=== PATIENT | male | born 1980 | race African-American/Black ===

== ENCOUNTER 2016-05-11 21:56 | Inpatient (IN) | payer MEDICAID, OTHER ==
[~2016-05-11] VITALS: Ht 177.8 cm; Wt 68.9 kg
[2016-05-12 03:01] LABS: BASOPHILS # (AUTO) 0.04 K/uL (0.00-0.20); BASOPHILS % (AUTO) 0.6 % (0.0-2.0); EOSINOPHILS # (AUTO) 0.13 K/uL (0.00-0.70); EOSINOPHILS % (AUTO) 1.85 % (1.0-6.0); HEMATOCRIT 38.6 % (41-53); HEMOGLOBIN 12.8 g/dL (13.5-17.5); LYMPHOCYTES % (AUTO) 14.6 % (22.0-44.0); MEAN CORPUSCULAR HEMOGLOBIN 30.3 pg (26.0-34.0); MEAN CORPUSCULAR VOLUME 92 fL (80-100); MONOCYTES # (AUTO) 0.6 K/uL (0.1-1.0); MONOCYTES % (AUTO) 8.7 % (2.0-9.0); NEUTROPHILS # (AUTO) 5.3 K/uL (1.8-7.7); NEUTROPHILS % (AUTO) 74.3 % (40.0-70.0); PLATELET COUNT (AUTO) 283 K/uL (150-450); RED BLOOD CELL COUNT(AUTO) 4.21 MIL/uL (4.50-5.90); RED CELL DISTRIBUTION WIDTH 14.2 % (11.5-14.5); WHITE BLOOD COUNT (AUTO) 7.1 K/uL (4.5-11.0)
[2016-05-12 03:10] LABS: ANION GAP 7 mmol/L (8-16); CARBON DIOXIDE 29 mmol/L (22-29); CHLORIDE 99 mmol/L (98-107); CREATININE 1.14 mg/dL (0.60-1.30); GLOMERULAR FILTR. RATE CALC > 60 mL/min (>60); POTASSIUM 3.4 mmol/L (3.5-5.1); SODIUM SERUM 135 mmol/L (136-145); UREA NITROGEN, BLOOD 15 mg/dL (7-18)
[2016-05-12] MEDS ORDERED: HALOPERIDOL 5 MG TABLET PO ONE (03:15)
[2016-05-12] MEDS ORDERED: LORazepam 2 MG TABLET PO ONE (03:15)
[2016-05-12] MEDS ORDERED: IBUPROFEN 600 MG TABLET PO ONE (03:15)
[2016-05-12 03:16] LABS: ALANINE AMINOTRANSFERASE 30 U/L (12-78); ALBUMIN 4.1 g/dL (3.4-5.0); ASPARTATE AMINOTRANSFERASE 40 U/L (15-37); BILIRUBIN,TOTAL 1.4 mg/dL (0.1-1.0)
[2016-05-12] MEDS ORDERED: POTASSIUM CHLORIDE 20 MEQ ER TABLET PO ONE ×2 (04:15→08:45)
[2016-05-12] MEDS ORDERED: LORazepam 2 MG TABLET PO PRN (05:45)
[2016-05-12] MEDS ORDERED: ZOLPIDEM TARTRATE 10 MG TABLET PO PRN (05:45)
[2016-05-12] MEDS ORDERED: HALOPERIDOL 5 MG TABLET PO PRN (06:30)
[2016-05-12 06:34] LABS: APPEARANCE,URINE TURBID (CLEAR); GLUCOSE, URINE (UA) NEGATIVE (NEGATIVE); KETONES,URINE 15 mg/dL (NEGATIVE); LEUKOCYTE ESTERASE ,URINE NEGATIVE (NEGATIVE); OCCULT BLOOD,URINE NEGATIVE (NEGATIVE); PROTEIN,URINE TRACE (NEGATIVE)
[2016-05-12 06:39] LABS: ADD UA MICROSCOPIC YES
[2016-05-12 06:46] LABS: RBC,URINE None Seen /HPF (0-2); WBC,URINE None Seen /HPF (0-5)
[2016-05-12 06:47] LABS: SQUAMOUS EPITHELIAL CELL,UR Few /LPF (None Seen)
[2016-05-12 06:54] VITALS: BP 133/91
[2016-05-12] MEDS ORDERED: INFLUENZA VIRUS VACCINE QVS 2016-17 (3YR+)/PF 60 MCG/0.5 ML SYRINGE IM ONE (07:45)
[2016-05-12 08:45] VITALS: BP 97/57
[2016-05-12] MEDS ORDERED: MAG HYDROX/AL HYDROX/SIMETH ES 30 ML SUSPENSION UDCUP PO PRN (08:45)
[2016-05-12] MEDS ORDERED: IBUPROFEN 600 MG TABLET PO PRN (08:45)
[2016-05-12] MEDS ORDERED: LOPERAMIDE HCL 2 MG CAPSULE PO PRN (08:45)
[2016-05-12] MEDS ORDERED: CloNIDine HCL 0.1 MG TABLET PO PRN (08:45)
[2016-05-12] MEDS ORDERED: ALBUTEROL SULFATE HFA 90 MCG/PUFF 8 GM INHALER IH PRN (08:45)
[2016-05-12] MEDS ORDERED: PETROLATUM,WHITE 71 GM JELLY TP PRN (08:45)
[2016-05-12] MEDS ORDERED: MAGNESIUM HYDROXIDE SUSPENSION 30 ML UDCUP PO PRN (08:45)
[2016-05-12] MEDS ORDERED: BACITRACIN 28.4 GM OINTMENT TP PRN (08:45)
[2016-05-12] MEDS ORDERED: ACETAMINOPHEN 325 MG TABLET PO PRN (08:45)
[2016-05-12] MEDS ORDERED: ONDANSETRON HCL 4 MG TABLET PO PRN (08:45)
[2016-05-12] MEDS ORDERED: BENZOCAINE/MENTHOL LOZENGE [8 LOZENGES/PACKET] MM PRN (09:00)
[2016-05-12] MEDS: CIPROFLOXACIN HCL 250 MG TABLET PO SCH ×2 (11:18→16:11)
[2016-05-12 16:44] VITALS: BP 101/57
[2016-05-12] MEDS ORDERED: QUEtiapine FUMARATE 200 MG TABLET PO SCH (21:00)
[2016-05-12] MEDS ORDERED: MIRTAZAPINE 15 MG TABLET PO SCH (21:00)
[2016-05-13 07:03] LABS: POTASSIUM 4.1 mmol/L (3.5-5.1)
[2016-05-13 08:42] VITALS: BP 114/58
[2016-05-13] MEDS: CIPROFLOXACIN HCL 250 MG TABLET PO SCH ×2 (09:44→16:06)
[2016-05-13] MEDS ORDERED: MIRT15 PO (14:33)
[2016-05-13] MEDS ORDERED: CIP250 PO (14:33)
[2016-05-13] MEDS ORDERED: QUET200T PO (14:34)
== END 2016-05-13 16:00 | disposition home or self-care (01) | DRG 750 ==
LOC: EMS 21:58 → 3EI 05-12 05:52
DX: F20.0 Paranoid schizophrenia (principal); R45.851 Suicidal ideations; E87.1 Hypo-osmolality and hyponatremia; E87.6 Hypokalemia; N39.0 Urinary tract infection, site not specified; G47.00 Insomnia, unspecified; F15.10 Other stimulant abuse, uncomplicated; F12.10 Cannabis abuse, uncomplicated; F17.200 Nicotine dependence, unspecified, uncomplicated; Z71.6 Tobacco abuse counseling; Z71.51 Drug abuse counseling and surveillance of drug abuser; Z91.5 Personal history of self-harm; Z87.81 Personal history of (healed) traumatic fracture
CPT/HCPCS: 84132; 84295; 87081; 87086; 99285; 99406; G0480; J3535

== ENCOUNTER 2016-05-30 03:23 | Inpatient (IN) | payer MEDICAID ==
[~2016-05-30] VITALS: Ht 172.7 cm; Wt 70.9 kg
[~2016-05-30 03:23] MED LIST: CIP250 PO; MIRT15 PO; QUET200T PO
[2016-05-30 04:10] LABS: BASOPHILS # (AUTO) 0.02 K/uL (0.00-0.20); BASOPHILS % (AUTO) 0.3 % (0.0-2.0); EOSINOPHILS # (AUTO) 0.04 K/uL (0.00-0.70); EOSINOPHILS % (AUTO) 0.62 % (1.0-6.0); HEMATOCRIT 39.8 % (41-53); HEMOGLOBIN 13.5 g/dL (13.5-17.5); LYMPHOCYTES # (AUTO) 0.8 K/uL (1.0-4.8); LYMPHOCYTES % (AUTO) 13.5 % (22.0-44.0); MEAN CORPUSCULAR HEMOGLOBIN 30.6 pg (26.0-34.0); MEAN CORPUSCULAR HGB CONC 33.8 G/dL (31.0-37.0); MEAN CORPUSCULAR VOLUME 90 fL (80-100); MONOCYTES # (AUTO) 0.4 K/uL (0.1-1.0); MONOCYTES % (AUTO) 6.9 % (2.0-9.0); NEUTROPHILS # (AUTO) 4.9 K/uL (1.8-7.7); NEUTROPHILS % (AUTO) 78.7 % (40.0-70.0); PLATELET COUNT (AUTO) 268 K/uL (150-450); RED CELL DISTRIBUTION WIDTH 13.6 % (11.5-14.5); WHITE BLOOD COUNT (AUTO) 6.2 K/uL (4.5-11.0)
[2016-05-30 04:16] LABS: ANION GAP 20 mmol/L (8-16); CALCIUM, TOTAL 9.2 mg/dL (8.8-10.5); CARBON DIOXIDE 20 mmol/L (22-29); CHLORIDE 100 mmol/L (98-107); CREATININE 1.48 mg/dL (0.60-1.30); GLOMERULAR FILTR. RATE CALC > 60 mL/min (>60); POTASSIUM 3.1 mmol/L (3.5-5.1); SODIUM SERUM 140 mmol/L (136-145); UREA NITROGEN, BLOOD 10 mg/dL (7-18)
[2016-05-30 04:23] LABS: ALANINE AMINOTRANSFERASE 28 U/L (12-78); ALBUMIN 4.4 g/dL (3.4-5.0); ASPARTATE AMINOTRANSFERASE 31 U/L (15-37); BILIRUBIN,TOTAL 1.8 mg/dL (0.1-1.0); TOTAL PROTEIN, SERUM 8.5 g/dL (6.4-8.2)
[2016-05-30] MEDS ORDERED: HALOPERIDOL LACTATE 5 MG/ML VIAL IM ONE (06:00)
[2016-05-30] MEDS ORDERED: LORazepam 2 MG TABLET PO PRN (06:00)
[2016-05-30] MEDS ORDERED: LORazepam 2 MG/ML VIAL IM ONE (06:00)
[2016-05-30] MEDS ORDERED: DiphenhydrAMINE HCL 50 MG/ML VIAL IM ONE (06:00)
[2016-05-30] MEDS ORDERED: HALOPERIDOL 5 MG TABLET PO PRN (06:00)
[2016-05-30] MEDS ORDERED: ZOLPIDEM TARTRATE 10 MG TABLET PO PRN (06:00)
[2016-05-30 09:00] LABS: ADD UA MICROSCOPIC YES; GLUCOSE, URINE (UA) NEGATIVE (NEGATIVE); KETONES,URINE TRACE mg/dL (NEGATIVE); LEUKOCYTE ESTERASE ,URINE NEGATIVE (NEGATIVE); OCCULT BLOOD,URINE SMALL (NEGATIVE); PROTEIN,URINE SEE CONFIRM (NEGATIVE)
[2016-05-30 09:01] LABS: APPEARANCE,URINE HAZY (CLEAR)
[2016-05-30 09:02] LABS: RBC,URINE 0-2 /HPF (0-2); SULFOSALICYLIC ACID,URINE 1+ (Negative); WBC,URINE 0-2 /HPF (0-5)
[2016-05-30 09:03] LABS: SQUAMOUS EPITHELIAL CELL,UR Rare /LPF (None Seen)
[2016-05-30 09:04] LABS: COARSE GRANULAR CASTS,URINE 0-2 /LPF (None Seen); URINALYSIS COMMENT Moderate Trich. seen
[2016-05-30] MEDS ORDERED: POTASSIUM CHLORIDE 10% 40 MEQ/30 ML LIQUID UDCUP PO ONE (22:00)
[2016-05-30] MEDS ORDERED: INFLUENZA VIRUS VACCINE QVS 2016-17 (3YR+)/PF 60 MCG/0.5 ML SYRINGE IM ONE (22:15)
[2016-05-30] MEDS ORDERED: PNEUMOCOCCAL VACCINE POLYVALENT 0.5 ML VIAL [PPSV23] IM ONE (22:15)
[2016-05-30 22:33] VITALS: BP 130/74
[2016-05-31] MEDS ORDERED: BACITRACIN 28.4 GM OINTMENT TP PRN (09:30)
[2016-05-31] MEDS ORDERED: ACETAMINOPHEN 325 MG TABLET PO PRN (09:30)
[2016-05-31] MEDS ORDERED: LOPERAMIDE HCL 2 MG CAPSULE PO PRN (09:30)
[2016-05-31] MEDS ORDERED: PETROLATUM,WHITE 71 GM JELLY TP PRN (09:30)
[2016-05-31] MEDS ORDERED: MAGNESIUM HYDROXIDE SUSPENSION 30 ML UDCUP PO PRN (09:30)
[2016-05-31] MEDS ORDERED: CloNIDine HCL 0.1 MG TABLET PO PRN (09:30)
[2016-05-31] MEDS ORDERED: MAG HYDROX/AL HYDROX/SIMETH ES 30 ML SUSPENSION UDCUP PO PRN (09:30)
[2016-05-31] MEDS ORDERED: BENZOCAINE/MENTHOL LOZENGE [8 LOZENGES/PACKET] MM PRN (09:30)
[2016-05-31] MEDS ORDERED: ONDANSETRON HCL 4 MG TABLET PO PRN (09:30)
[2016-05-31] MEDS ORDERED: IBUPROFEN 600 MG TABLET PO PRN (09:30)
[2016-05-31] MEDS ORDERED: ALBUTEROL SULFATE HFA 90 MCG/PUFF 8 GM INHALER IH PRN (09:30)
[2016-05-31] MEDS: NICOTINE 7 MG/24 HOUR PATCH TD SCH (09:59)
[2016-05-31 11:02] VITALS: BP 114/62
[2016-05-31 16:30] VITALS: BP 121/65
[2016-05-31] MEDS ORDERED: MIRTAZAPINE 15 MG TABLET PO SCH (21:00)
[2016-05-31] MEDS ORDERED: QUEtiapine FUMARATE 200 MG TABLET PO SCH (21:00)
[2016-06-01 07:33] LABS: HEMOGLOBIN A1C 5.5 % (4.5-6.2)
[2016-06-01 07:55] LABS: ANION GAP 10 mmol/L (8-16); CALCIUM, TOTAL 8.4 mg/dL (8.8-10.5); CARBON DIOXIDE 26 mmol/L (22-29); CHLORIDE 108 mmol/L (98-107); CHOL/HDL RATIO 2.4 (4.2-7.3); CREATININE 1.09 mg/dL (0.60-1.30); GLOMERULAR FILTR. RATE CALC > 60 mL/min (>60); POTASSIUM 3.9 mmol/L (3.5-5.1); SODIUM SERUM 144 mmol/L (136-145); UREA NITROGEN, BLOOD 13 mg/dL (7-18)
[2016-06-01] MEDS: NICOTINE 7 MG/24 HOUR PATCH TD SCH (09:47)
[2016-06-01 10:22] VITALS: BP 117/69
== END 2016-06-01 14:54 | disposition home or self-care (01) | DRG 885 ==
LOC: EMS 03:24 → 3EI 21:38
DX: F20.0 Paranoid schizophrenia (principal); R45.851 Suicidal ideations; F43.10 Post-traumatic stress disorder, unspecified; F32.9 Major depressive disorder, single episode, unspecified; E87.6 Hypokalemia; R73.9 Hyperglycemia, unspecified; F15.10 Other stimulant abuse, uncomplicated; F12.90 Cannabis use, unspecified, uncomplicated; F17.210 Nicotine dependence, cigarettes, uncomplicated; Z72.89 Other problems related to lifestyle; Z71.41 Alcohol abuse counseling and surveillance of alcoholic; Z71.6 Tobacco abuse counseling; Z79.899 Other long term (current) drug therapy; Z71.51 Drug abuse counseling and surveillance of drug abuser; Z98.890 Other specified postprocedural states; Z87.81 Personal history of (healed) traumatic fracture
CPT/HCPCS: 82306; 83036; 84443; 87081; 96372; 99285; G0480; J1200; J1630; J2060; Q0162

== ENCOUNTER 2016-07-02 22:06 | Inpatient (IN) | payer MEDICAID, OTHER ==
[~2016-07-02] VITALS: Ht 170.2 cm; Wt 65.1 kg
[~2016-07-02 22:06] MED LIST changes: -CIP250 PO
[2016-07-02 22:39] LABS: BASOPHILS # (AUTO) 0.09 K/uL (0.00-0.20); BASOPHILS % (AUTO) 1.9 % (0.0-2.0); EOSINOPHILS # (AUTO) 0.13 K/uL (0.00-0.70); EOSINOPHILS % (AUTO) 2.67 % (1.0-6.0); HEMATOCRIT 42.4 % (41-53); HEMOGLOBIN 14.4 g/dL (13.5-17.5); LYMPHOCYTES # (AUTO) 1.5 K/uL (1.0-4.8); MEAN CORPUSCULAR HGB CONC 33.9 G/dL (31.0-37.0); MEAN CORPUSCULAR VOLUME 89 fL (80-100); MONOCYTES # (AUTO) 0.3 K/uL (0.1-1.0); MONOCYTES % (AUTO) 6.7 % (2.0-9.0); NEUTROPHILS # (AUTO) 2.9 K/uL (1.8-7.7); NEUTROPHILS % (AUTO) 58.8 % (40.0-70.0); PLATELET COUNT (AUTO) 216 K/uL (150-450); RED BLOOD CELL COUNT(AUTO) 4.79 MIL/uL (4.50-5.90); RED CELL DISTRIBUTION WIDTH 14.5 % (11.5-14.5)
[2016-07-02 22:47] LABS: ANION GAP 12 mmol/L (8-16); CALCIUM, TOTAL 9.6 mg/dL (8.8-10.5); CARBON DIOXIDE 26 mmol/L (22-29); CHLORIDE 102 mmol/L (98-107); GLOMERULAR FILTR. RATE CALC > 60 mL/min (>60); POTASSIUM 3.5 mmol/L (3.5-5.1); SODIUM SERUM 140 mmol/L (136-145); UREA NITROGEN, BLOOD 12 mg/dL (7-18)
[2016-07-02 22:52] LABS: ALANINE AMINOTRANSFERASE 18 U/L (12-78); ALBUMIN 4.3 g/dL (3.4-5.0); ASPARTATE AMINOTRANSFERASE 19 U/L (15-37); BILIRUBIN,TOTAL 1.9 mg/dL (0.1-1.0); TOTAL PROTEIN, SERUM 8.3 g/dL (6.4-8.2)
[2016-07-03] MEDS ORDERED: LORazepam 2 MG TABLET PO PRN
[2016-07-03] MEDS ORDERED: OLANZapine 5 MG RAPDIS TABLET PO PRN
[2016-07-03] MEDS ORDERED: ZOLPIDEM TARTRATE 10 MG TABLET PO PRN
[2016-07-03 06:08] VITALS: BP 113/60
[2016-07-03 07:31] VITALS: BP 113/60
[2016-07-03 08:14] VITALS: BP 100/66
[2016-07-03] MEDS ORDERED: BENZOCAINE/MENTHOL LOZENGE MM PRN (08:15)
[2016-07-03] MEDS ORDERED: ALBUTEROL SULFATE HFA 90 MCG/PUFF 8 GM INHALER IH PRN (08:15)
[2016-07-03] MEDS ORDERED: IBUPROFEN 600 MG TABLET PO PRN (08:15)
[2016-07-03] MEDS ORDERED: ONDANSETRON HCL 4 MG TABLET PO PRN (08:15)
[2016-07-03] MEDS ORDERED: MAGNESIUM HYDROXIDE SUSPENSION 30 ML UDCUP PO PRN (08:15)
[2016-07-03] MEDS ORDERED: MAG HYDROX/AL HYDROX/SIMETH ES 30 ML SUSPENSION UDCUP PO PRN (08:15)
[2016-07-03] MEDS ORDERED: CloNIDine HCL 0.1 MG TABLET PO PRN (08:15)
[2016-07-03] MEDS ORDERED: PETROLATUM,WHITE 71 GM JELLY TP PRN (08:15)
[2016-07-03] MEDS ORDERED: ACETAMINOPHEN 325 MG TABLET PO PRN (08:15)
[2016-07-03] MEDS ORDERED: LOPERAMIDE HCL 2 MG CAPSULE PO PRN ×2 (08:15→11:00)
[2016-07-03] MEDS ORDERED: BACITRACIN 28.4 GM OINTMENT TP PRN (08:15)
[2016-07-03] MEDS ORDERED: MULTIVITAMINS WITH MINERALS, THERAPEUTIC TABLET PO SCH (09:00)
[2016-07-03] MEDS ORDERED: GuaiFENesin/D-METHORPHAN [SUGAR-FREE] 200-20MG/10 ML SYRUP UDCUP PO PRN (11:00)
[2016-07-03] MEDS ORDERED: QUEtiapine FUMARATE 100 MG TABLET PO PRN (11:00)
[2016-07-03] MEDS ORDERED: HydrOXYzine PAMOATE 50 MG CAPSULE PO PRN (11:00)
[2016-07-03] MEDS ORDERED: PALIPERIDONE 3 MG ER TABLET PO PRN (15:30)
[2016-07-03] MEDS ORDERED: PALIPERIDONE PALMITATE 234 MG/1.5 ML SYRINGE IM ONE (15:30)
[2016-07-03 16:48] VITALS: BP 107/57
[2016-07-03] MEDS: THIAMINE HCL 100 MG TABLET PO SCH (16:54)
[2016-07-03] MEDS: GABAPENTIN 100 MG CAPSULE PO SCH (16:54)
[2016-07-03] MEDS ORDERED: QUEtiapine FUMARATE 200 MG TABLET PO SCH (21:00)
[2016-07-03] MEDS ORDERED: PALIPERIDONE 3 MG ER TABLET PO SCH (21:00)
[2016-07-03 22:05] VITALS: BP 111/63
[2016-07-04 00:47] VITALS: BP 101/59
[2016-07-04 08:41] VITALS: BP 101/60
[2016-07-04] MEDS: FOLIC ACID 1 MG TABLET PO SCH (08:49)
[2016-07-04] MEDS: GABAPENTIN 100 MG CAPSULE PO SCH ×3 (08:49→16:14)
[2016-07-04] MEDS: MULTIVITAMINS WITH MINERALS, THERAPEUTIC TABLET PO SCH (08:50)
[2016-07-04] MEDS: THIAMINE HCL 100 MG TABLET PO SCH ×2 (08:50→16:13)
[2016-07-04] MEDS ORDERED: DULoxetine HCL 20 MG CAPSULE PO SCH (09:00)
[2016-07-04 16:23] VITALS: BP 119/64
[2016-07-05 00:29] VITALS: BP 115/64
[2016-07-05 08:03] VITALS: BP 112/62
[2016-07-05] MEDS: GABAPENTIN 100 MG CAPSULE PO SCH ×3 (08:35→16:10)
[2016-07-05] MEDS: DULoxetine HCL 30 MG CAPSULE PO SCH (08:35)
[2016-07-05] MEDS: MULTIVITAMINS WITH MINERALS, THERAPEUTIC TABLET PO SCH (08:35)
[2016-07-05] MEDS: THIAMINE HCL 100 MG TABLET PO SCH ×2 (08:35→16:10)
[2016-07-05] MEDS: FOLIC ACID 1 MG TABLET PO SCH (08:35)
[2016-07-05] MEDS ORDERED: NALT50 PO (11:51)
[2016-07-05] MEDS ORDERED: GABA-529 PO (11:51)
[2016-07-05] MEDS ORDERED: PALI156D IM (11:51)
[2016-07-05 16:05] VITALS: BP 119/69
[2016-07-06 01:18] VITALS: BP 107/65
[2016-07-06 08:03] VITALS: BP 92/55
[2016-07-06] MEDS: GABAPENTIN 100 MG CAPSULE PO SCH ×2 (08:48→13:25)
[2016-07-06] MEDS: DULoxetine HCL 30 MG CAPSULE PO SCH (08:48)
[2016-07-06] MEDS: FOLIC ACID 1 MG TABLET PO SCH (08:48)
[2016-07-06] MEDS: MULTIVITAMINS WITH MINERALS, THERAPEUTIC TABLET PO SCH (08:48)
[2016-07-06] MEDS: THIAMINE HCL 100 MG TABLET PO SCH (08:48)
[2016-07-06] MEDS ORDERED: NALTREXONE HCL 50 MG TABLET PO SCH (09:00)
[2016-07-06] MEDS ORDERED: THIA100 PO (14:24)
[2016-07-06] MEDS ORDERED: FOLI1 PO (14:24)
[2016-07-06] MEDS ORDERED: DULO30CA2 PO (14:32)
[2016-07-07] MEDS ORDERED: PALIPERIDONE PALMITATE 156 MG/ML SYRINGE IM ONE (09:00)
== END 2016-07-06 16:00 | disposition home or self-care (01) | DRG 750 ==
LOC: EMS 22:08 → B2S 07-03 00:25
PROVIDERS: ADMIT Psychiatry & Neurology Psychiatry; ATTEND Psychiatry & Neurology Psychiatry
DX: F20.0 Paranoid schizophrenia (principal); R45.851 Suicidal ideations; E55.9 Vitamin D deficiency, unspecified; Z71.51 Drug abuse counseling and surveillance of drug abuser; F15.10 Other stimulant abuse, uncomplicated; F17.210 Nicotine dependence, cigarettes, uncomplicated; F12.10 Cannabis abuse, uncomplicated; F39 Unspecified mood [affective] disorder; F43.10 Post-traumatic stress disorder, unspecified; G47.00 Insomnia, unspecified; K59.00 Constipation, unspecified; Z79.899 Other long term (current) drug therapy; Z91.19 Patient's noncompliance with other medical treatment and regimen; Z71.6 Tobacco abuse counseling
CPT/HCPCS: 99285; G0480

== ENCOUNTER 2016-09-01 17:39 | Inpatient (IN) | payer MEDICAID ==
[~2016-09-01] VITALS: Ht 172.7 cm; Wt 69.4 kg
[~2016-09-01 17:39] MED LIST changes: +DULO30CA2 PO; +FOLI1 PO; +GABA-529 PO; -MIRT15 PO; +NALT50 PO; +PALI156D IM; -QUET200T PO; +THIA100 PO
[2016-09-01 18:31] LABS: BASOPHILS % (AUTO) 0.5 % (0.0-2.0); EOSINOPHILS % (AUTO) 0.7 % (1.0-6.0); HEMATOCRIT 38.6 % (41-53); HEMOGLOBIN 12.4 g/dL (13.5-17.5); LYMPHOCYTES # (AUTO) 1.2 K/uL (1.0-4.8); LYMPHOCYTES % (AUTO) 15.3 % (22.0-44.0); MEAN CORPUSCULAR HGB CONC 32.2 G/dL (31.0-37.0); MEAN CORPUSCULAR VOLUME 90 fL (80-100); MONOCYTES # (AUTO) 0.8 K/uL (0.1-1.0); MONOCYTES % (AUTO) 9.5 % (2.0-9.0); PLATELET COUNT (AUTO) 321 K/uL (150-450); RED BLOOD CELL COUNT(AUTO) 4.29 MIL/uL (4.50-5.90); RED CELL DISTRIBUTION WIDTH 13.5 % (11.5-14.5); WHITE BLOOD COUNT (AUTO) 8.1 K/uL (4.5-11.0)
[2016-09-01 18:38] LABS: ANION GAP 9 mmol/L (8-16); CALCIUM, TOTAL 9.7 mg/dL (8.8-10.5); CARBON DIOXIDE 27 mmol/L (22-29); CHLORIDE 99 mmol/L (98-107); CREATININE 1.28 mg/dL (0.60-1.30); GLOMERULAR FILTR. RATE CALC > 60 mL/min (>60); POTASSIUM 3.7 mmol/L (3.5-5.1); SODIUM SERUM 135 mmol/L (136-145); UREA NITROGEN, BLOOD 13 mg/dL (7-18)
[2016-09-01 18:44] LABS: ALANINE AMINOTRANSFERASE 26 U/L (12-78); ALBUMIN 4.4 g/dL (3.4-5.0); ASPARTATE AMINOTRANSFERASE 15 U/L (15-37); BILIRUBIN,TOTAL 1.1 mg/dL (0.1-1.0); TOTAL PROTEIN, SERUM 8.6 g/dL (6.4-8.2)
[2016-09-01] MEDS ORDERED: LORazepam 2 MG TABLET PO PRN (19:30)
[2016-09-01] MEDS ORDERED: HALOPERIDOL 5 MG TABLET PO PRN (19:30)
[2016-09-01] MEDS ORDERED: ZOLPIDEM TARTRATE 10 MG TABLET PO PRN (19:30)
[2016-09-01] MEDS ORDERED: ACETAMINOPHEN 500 MG TABLET PO ONE (20:30)
[2016-09-01 22:54] VITALS: BP 141/81
[2016-09-02 01:35] VITALS: BP 116/68
[2016-09-02] MEDS ORDERED: IBUPROFEN 600 MG TABLET PO PRN (07:15)
[2016-09-02] MEDS ORDERED: MAG HYDROX/AL HYDROX/SIMETH ES 30 ML SUSPENSION UDCUP PO PRN (07:15)
[2016-09-02] MEDS ORDERED: BENZOCAINE/MENTHOL LOZENGE MM PRN (07:15)
[2016-09-02] MEDS ORDERED: ONDANSETRON HCL 4 MG TABLET PO PRN (07:15)
[2016-09-02] MEDS ORDERED: CloNIDine HCL 0.1 MG TABLET PO PRN (07:15)
[2016-09-02] MEDS ORDERED: MAGNESIUM HYDROXIDE SUSPENSION 30 ML UDCUP PO PRN (07:15)
[2016-09-02] MEDS ORDERED: BACITRACIN 28.4 GM OINTMENT TP PRN (07:15)
[2016-09-02] MEDS ORDERED: PETROLATUM,WHITE 71 GM JELLY TP PRN (07:15)
[2016-09-02] MEDS ORDERED: ACETAMINOPHEN 325 MG TABLET PO PRN (07:15)
[2016-09-02] MEDS ORDERED: ALBUTEROL SULFATE HFA 90 MCG/PUFF 8 GM INHALER IH PRN (07:15)
[2016-09-02] MEDS ORDERED: LOPERAMIDE HCL 2 MG CAPSULE PO PRN (07:15)
[2016-09-02 08:25] VITALS: BP 116/69
[2016-09-02] MEDS: GABAPENTIN 100 MG CAPSULE PO SCH ×3 (09:30→16:27)
[2016-09-02] MEDS: DULoxetine HCL 30 MG CAPSULE PO SCH ×2 (09:30→16:27)
[2016-09-02] MEDS: NALTREXONE HCL 50 MG TABLET PO SCH (09:30)
[2016-09-02] MEDS: DOCUSATE SODIUM 250 MG CAPSULE PO SCH ×2 (09:30→16:27)
[2016-09-02] MEDS ORDERED: PALIPERIDONE PALMITATE 234 MG/1.5 ML SYRINGE IM SCH (15:00)
[2016-09-02 16:00] VITALS: BP 121/78
[2016-09-03 02:13] VITALS: BP 101/67
[2016-09-03 08:00] LABS: HEMOGLOBIN A1C 5.9 % (4.5-6.2)
[2016-09-03 08:14] VITALS: BP 111/66
[2016-09-03 08:28] LABS: CHOL/HDL RATIO 3.2 (4.2-7.3); THYROID STIMULATING HORMONE 1.16 uIU/mL (0.36-3.74)
[2016-09-03] MEDS: NALTREXONE HCL 50 MG TABLET PO SCH (10:13)
[2016-09-03] MEDS: DOCUSATE SODIUM 250 MG CAPSULE PO SCH ×2 (10:13→17:12)
[2016-09-03] MEDS: DULoxetine HCL 30 MG CAPSULE PO SCH ×2 (10:13→17:12)
[2016-09-03] MEDS: GABAPENTIN 100 MG CAPSULE PO SCH ×3 (10:13→17:12)
[2016-09-04 04:50] VITALS: BP 101/63
[2016-09-04] MEDS: GABAPENTIN 100 MG CAPSULE PO SCH ×2 (08:28→13:07)
[2016-09-04] MEDS: DOCUSATE SODIUM 250 MG CAPSULE PO SCH (08:28)
[2016-09-04] MEDS: DULoxetine HCL 30 MG CAPSULE PO SCH (08:28)
[2016-09-04] MEDS: NALTREXONE HCL 50 MG TABLET PO SCH (08:28)
[2016-09-04 08:42] VITALS: BP 106/69
[2016-09-04] MEDS ORDERED: DOCU250C91 PO (13:11)
== END 2016-09-04 13:30 | disposition home or self-care (01) | DRG 750 ==
LOC: EMS 17:42 → B2S 20:00
PROVIDERS: ADMIT Psychiatry & Neurology Child & Adolescent Psychiatry; ATTEND Psychiatry & Neurology Child & Adolescent Psychiatry
DX: F25.0 Schizoaffective disorder, bipolar type (principal); R45.851 Suicidal ideations; E87.1 Hypo-osmolality and hyponatremia; F15.10 Other stimulant abuse, uncomplicated; F43.10 Post-traumatic stress disorder, unspecified; K59.00 Constipation, unspecified; G47.00 Insomnia, unspecified; M79.604 Pain in right leg; E55.9 Vitamin D deficiency, unspecified; R73.9 Hyperglycemia, unspecified; J45.909 Unspecified asthma, uncomplicated; F17.210 Nicotine dependence, cigarettes, uncomplicated; F12.90 Cannabis use, unspecified, uncomplicated; Z72.89 Other problems related to lifestyle; Z71.51 Drug abuse counseling and surveillance of drug abuser; Z71.6 Tobacco abuse counseling; Z79.899 Other long term (current) drug therapy; Z91.19 Patient's noncompliance with other medical treatment and regimen; Z56.0 Unemployment, unspecified
CPT/HCPCS: 82306; 83036; 84295; 84443; 99285; G0480

== ENCOUNTER 2016-09-20 07:36 | Emergency (ER) | payer MEDICAID, OTHER ==
[~2016-09-20] VITALS: Ht 172.7 cm; Wt 72.7 kg
[~2016-09-20 07:36] MED LIST changes: +DOCU250C91 PO; -FOLI1 PO; -THIA100 PO
[2016-09-20] MEDS ORDERED: SODIUM CHLORIDE 0.9% 1,000 ML IV ONE (08:15)
[2016-09-20] MEDS ORDERED: LOPERAMIDE HCL 2 MG CAPSULE PO ONE ×2 (08:15→10:30)
[2016-09-20 08:29] LABS: BASOPHILS % (AUTO) 0.1 % (0.0-2.0); HEMATOCRIT 37.6 % (41-53); HEMOGLOBIN 12.8 g/dL (13.5-17.5); LYMPHOCYTES % (AUTO) 19.7 % (22.0-44.0); MEAN CORPUSCULAR HEMOGLOBIN 30.8 pg (26.0-34.0); MEAN CORPUSCULAR VOLUME 91 fL (80-100); MONOCYTES # (AUTO) 0.7 K/uL (0.1-1.0); MONOCYTES % (AUTO) 13.5 % (2.0-9.0); NEUTROPHILS # (AUTO) 3.1 K/uL (1.8-7.7); NEUTROPHILS % (AUTO) 61.7 % (40.0-70.0); PLATELET COUNT (AUTO) 210 K/uL (150-450); RED BLOOD CELL COUNT(AUTO) 4.15 MIL/uL (4.50-5.90); RED CELL DISTRIBUTION WIDTH 14.3 % (11.5-14.5); WHITE BLOOD COUNT (AUTO) 5.1 K/uL (4.5-11.0)
[2016-09-20 08:43] LABS: ANION GAP 10 mmol/L (8-16); CALCIUM, TOTAL 8.5 mg/dL (8.8-10.5); CARBON DIOXIDE 24 mmol/L (22-29); CHLORIDE 105 mmol/L (98-107); CREATININE 1.32 mg/dL (0.60-1.30); GLOMERULAR FILTR. RATE CALC > 60 mL/min (>60); POTASSIUM 4.1 mmol/L (3.5-5.1); SODIUM SERUM 139 mmol/L (136-145); UREA NITROGEN, BLOOD 9 mg/dL (7-18)
[2016-09-20 08:49] LABS: ALANINE AMINOTRANSFERASE 20 U/L (12-78); ALBUMIN 3.7 g/dL (3.4-5.0); ASPARTATE AMINOTRANSFERASE 11 U/L (15-37); BILIRUBIN,TOTAL 0.9 mg/dL (0.1-1.0); TOTAL PROTEIN, SERUM 7.3 g/dL (6.4-8.2)
[2016-09-20 09:17] LABS: ADD UA MICROSCOPIC NO; APPEARANCE,URINE CLEAR (CLEAR); GLUCOSE, URINE (UA) NEGATIVE (NEGATIVE); KETONES,URINE NEGATIVE (NEGATIVE); LEUKOCYTE ESTERASE ,URINE NEGATIVE (NEGATIVE); OCCULT BLOOD,URINE NEGATIVE (NEGATIVE); PH,URINE 5.5 (5.0-8.0); PROTEIN,URINE NEGATIVE (NEGATIVE)
[2016-09-20] MEDS ORDERED: METOCLOPRAMIDE HCL 5 MG/ML 2 ML VIAL IVP ONE (09:30)
[2016-09-20 10:03] VITALS: BP 121/73
== END 2016-09-20 10:45 | disposition home or self-care (01) ==
LOC: EMS 07:38
DX: R10.84 Generalized abdominal pain (principal); R11.2 Nausea with vomiting, unspecified; R19.7 Diarrhea, unspecified; F17.210 Nicotine dependence, cigarettes, uncomplicated; F12.90 Cannabis use, unspecified, uncomplicated; J45.909 Unspecified asthma, uncomplicated
CPT/HCPCS: 36415; 80053; 81003; 83690; 85025; 96360; 96374; 99284; J2765; J7030

== ENCOUNTER 2019-10-05 12:53 | Inpatient (IN) | payer MEDICAID, OTHER ==
[~2019-10-05] VITALS: Ht 170.2 cm; Wt 66.8 kg
[~2019-10-05 12:53] MED LIST changes: +DOCU-342 PO; -DOCU250C91 PO; -NALT50 PO
[2019-10-05] MEDS ORDERED: HALOPERIDOL LACTATE 5 MG/ML VIAL IM ONE (14:15)
[2019-10-05] MEDS ORDERED: LORazepam 2 MG/ML VIAL IM ONE (14:15)
[2019-10-05] MEDS ORDERED: DiphenhydrAMINE HCL 50 MG/ML VIAL IM ONE (14:15)
[2019-10-05 14:52] LABS: BASOPHILS % (AUTO) 0.5 % (0.0-2.0); EOSINOPHILS % (AUTO) 0.1 % (1.0-6.0); HEMATOCRIT 39.3 % (41-53); HEMOGLOBIN 13.4 g/dL (13.5-17.5); LYMPHOCYTES # (AUTO) 0.7 K/uL (1.0-4.8); LYMPHOCYTES % (AUTO) 7.2 % (22.0-44.0); MEAN CORPUSCULAR HEMOGLOBIN 31.6 pg (26.0-34.0); MEAN CORPUSCULAR HGB CONC 34.1 G/dL (31.0-37.0); MEAN CORPUSCULAR VOLUME 93 fL (80-100); MONOCYTES # (AUTO) 0.6 K/uL (0.1-1.0); MONOCYTES % (AUTO) 6.4 % (2.0-9.0); NEUTROPHILS # (AUTO) 8.1 K/uL (1.8-7.7); PLATELET COUNT (AUTO) 276 K/uL (150-450); RED BLOOD CELL COUNT(AUTO) 4.25 MIL/uL (4.50-5.90)
[2019-10-05 14:54] LABS: NEUTROPHILS % (AUTO) 85.8 % (40.0-70.0)
[2019-10-05 15:41] LABS: AMPHET/METH SCREEN,URINE POSITIVE (NEGATIVE); BARBITURATE SCREEN, URINE NEGATIVE (NEGATIVE); BENZODIAZEPINES SCREEN,URINE POSITIVE (NEGATIVE); CANNABINOID SCREEN,URINE POSITIVE (NEGATIVE); COCAINE SCREEN,URINE NEGATIVE (NEGATIVE); METHADONE SCREEN, URINE NEGATIVE (NEGATIVE); OPIATE SCREEN,URINE NEGATIVE (NEGATIVE)
[2019-10-05 15:49] LABS: PHENCYCLIDINE SCREEN,URINE NEGATIVE (NEGATIVE)
[2019-10-05] MEDS ORDERED: PALIPERIDONE PALMITATE 234 MG/1.5 ML SYRINGE IM ONE (16:00)
[2019-10-05] MEDS ORDERED: PALIPERIDONE 1.5 MG ER TABLET PO PRN (16:00)
[2019-10-05] MEDS ORDERED: LOPERAMIDE HCL 2 MG CAPSULE PO PRN (16:00)
[2019-10-05] MEDS ORDERED: LORazepam 2 MG TABLET PO PRN (16:00)
[2019-10-05] MEDS ORDERED: MAG HYDROX/AL HYDROX/SIMETH ES 30 ML SUSPENSION UDCUP PO PRN (16:00)
[2019-10-05] MEDS ORDERED: MAGNESIUM HYDROXIDE SUSPENSION 30 ML UDCUP PO PRN (16:00)
[2019-10-05] MEDS ORDERED: TUBERCULIN, PURIFIED PROTEIN DERIVATIVE 5 TU/0.1 ML SYRINGE ID ONE (16:00)
[2019-10-05] MEDS ORDERED: ACETAMINOPHEN 325 MG TABLET PO PRN (16:00)
[2019-10-05] MEDS ORDERED: HydrOXYzine PAMOATE 50 MG CAPSULE PO PRN (16:00)
[2019-10-05] MEDS ORDERED: GuaiFENesin/D-METHORPHAN [SUGAR-FREE] 200-20MG/10 ML SYRUP UDCUP PO PRN (16:00)
[2019-10-05] MEDS ORDERED: ZOLPIDEM TARTRATE 10 MG TABLET PO PRN (16:00)
[2019-10-05] MEDS ORDERED: PROMETHAZINE HCL 25 MG TABLET PO PRN (16:00)
[2019-10-05 16:47] LABS: ANION GAP 15 mmol/L (8-16); CALCIUM, TOTAL 9.2 mg/dL (8.8-10.5); CARBON DIOXIDE 22 mmol/L (22-29); CHLORIDE 101 mmol/L (98-107); CREATININE 1.27 mg/dL (0.60-1.30); GLOMERULAR FILTR. RATE CALC > 60 mL/min (>60); GLUCOSE,RANDOM 123 mg/dL (70-110); POTASSIUM 3.6 mmol/L (3.5-5.1); SODIUM SERUM 138 mmol/L (136-145); UREA NITROGEN, BLOOD 14 mg/dL (7-18)
[2019-10-05 16:53] LABS: ALANINE AMINOTRANSFERASE 24 U/L (12-78); ALBUMIN 4.4 g/dL (3.4-5.0); ALKALINE PHOSPHATASE 62 U/L (46-116); ASPARTATE AMINOTRANSFERASE 31 U/L (15-37); BILIRUBIN,TOTAL 1.4 mg/dL (0.1-1.0); TOTAL PROTEIN, SERUM 8.3 g/dL (6.4-8.2)
[2019-10-05 20:22] VITALS: BP 144/89
[2019-10-05 20:54] VITALS: BP 144/89
[2019-10-05] MEDS: THIAMINE 100 MG TABLET PO SCH (20:56)
[2019-10-05] MEDS ORDERED: PALIPERIDONE 3 MG ER TABLET PO SCH (21:00)
[2019-10-06 07:36] LABS: CHOL/HDL RATIO 2.4 (4.2-7.3); FREE T4 (FREE THYROXINE) 1.07 ng/dL (0.76-1.46); THYROID STIMULATING HORMONE 3.12 uIU/mL (0.36-3.74)
[2019-10-06] MEDS: MULTIVITAMINS WITH MINERALS, THERAPEUTIC TABLET PO SCH (09:38)
[2019-10-06] MEDS: NALTREXONE HCL 50 MG TABLET PO SCH (09:39)
[2019-10-06] MEDS: FOLIC ACID 1 MG TABLET PO SCH (09:39)
[2019-10-06] MEDS: THIAMINE 100 MG TABLET PO SCH ×2 (09:40→16:24)
[2019-10-06 11:37] VITALS: BP 123/67
[2019-10-06 16:14] VITALS: BP 149/83
[2019-10-07] MEDS: BusPIRone HCL 5 MG TABLET PO SCH ×4 (09:00→16:18)
[2019-10-07] MEDS: GABAPENTIN 100 MG CAPSULE PO SCH ×4 (09:00→16:18)
[2019-10-07] MEDS: NALTREXONE HCL 50 MG TABLET PO SCH ×2 (09:00→09:08)
[2019-10-07] MEDS: THIAMINE 100 MG TABLET PO SCH ×2 (09:08→16:11)
[2019-10-07] MEDS: MULTIVITAMINS WITH MINERALS, THERAPEUTIC TABLET PO SCH (09:08)
[2019-10-07] MEDS: FOLIC ACID 1 MG TABLET PO SCH (09:08)
[2019-10-07 09:21] VITALS: BP 105/64
[2019-10-07 16:00] VITALS: BP 103/60
[2019-10-07] MEDS ORDERED: PALI156D IM (20:47)
[2019-10-07] MEDS ORDERED: NALT50TA PO (20:47)
[2019-10-07] MEDS ORDERED: PALI117D IM (20:47)
[2019-10-08 08:00] VITALS: BP 107/68
[2019-10-08] MEDS: NALTREXONE HCL 50 MG TABLET PO SCH (09:00)
[2019-10-08] MEDS: FOLIC ACID 1 MG TABLET PO SCH (09:08)
[2019-10-08] MEDS: MULTIVITAMINS WITH MINERALS, THERAPEUTIC TABLET PO SCH (09:08)
[2019-10-08] MEDS: THIAMINE 100 MG TABLET PO SCH (09:08)
[2019-10-09] MEDS ORDERED: PALIPERIDONE PALMITATE 156 MG/ML SYRINGE IM ONE (09:00)
== END 2019-10-08 13:10 | disposition home or self-care (01) | DRG 885 ==
LOC: EMS 12:56 → 3EI 16:41
PROVIDERS: ADMIT Psychiatry & Neurology Psychiatry; ATTEND Psychiatry & Neurology Psychiatry
DX: F25.9 Schizoaffective disorder, unspecified (principal); R45.851 Suicidal ideations; F17.210 Nicotine dependence, cigarettes, uncomplicated; F43.10 Post-traumatic stress disorder, unspecified; F60.0 Paranoid personality disorder; F15.10 Other stimulant abuse, uncomplicated; J45.909 Unspecified asthma, uncomplicated; G89.29 Other chronic pain; F12.90 Cannabis use, unspecified, uncomplicated; Z91.5 Personal history of self-harm
CPT/HCPCS: 84439; 84443; 86592; 93005; G0480; J1200; J1630; J2060

== ENCOUNTER 2019-12-10 13:07 | Inpatient (IN) | payer MEDICAID ==
[~2019-12-10] VITALS: Ht 172.7 cm; Wt 72.7 kg
[~2019-12-10 13:07] MED LIST changes: -DOCU-342 PO; -DULO30CA2 PO; -GABA-529 PO; +NALT50TA PO; +PALI117D IM
[2019-12-10] MEDS ORDERED: OLAN5TAB2 PO (13:19)
[2019-12-10 13:58] LABS: BASOPHILS % (AUTO) 0.7 % (0.0-2.0); EOSINOPHILS % (AUTO) 1.7 % (1.0-6.0); HEMATOCRIT 36.6 % (41-53); HEMOGLOBIN 12.4 g/dL (13.5-17.5); LYMPHOCYTES # (AUTO) 1.4 K/uL (1.0-4.8); LYMPHOCYTES % (AUTO) 22.1 % (22.0-44.0); MEAN CORPUSCULAR HEMOGLOBIN 31.6 pg (26.0-34.0); MEAN CORPUSCULAR HGB CONC 33.9 G/dL (31.0-37.0); MEAN CORPUSCULAR VOLUME 93 fL (80-100); MONOCYTES # (AUTO) 0.6 K/uL (0.1-1.0); MONOCYTES % (AUTO) 9.9 % (2.0-9.0); NEUTROPHILS # (AUTO) 4.3 K/uL (1.8-7.7); NEUTROPHILS % (AUTO) 65.6 % (40.0-70.0); PLATELET COUNT (AUTO) 216 K/uL (150-450); RED BLOOD CELL COUNT(AUTO) 3.92 MIL/uL (4.50-5.90); RED CELL DISTRIBUTION WIDTH 13.1 % (11.5-14.5)
[2019-12-10 14:07] LABS: ANION GAP 8 mmol/L (8-16); CALCIUM, TOTAL 9.2 mg/dL (8.8-10.5); CARBON DIOXIDE 27 mmol/L (22-29); CHLORIDE 101 mmol/L (98-107); CREATININE 1.14 mg/dL (0.60-1.30); GLOMERULAR FILTR. RATE CALC > 60 mL/min (>60); GLUCOSE,RANDOM 95 mg/dL (70-110); POTASSIUM 3.5 mmol/L (3.5-5.1); SODIUM SERUM 136 mmol/L (136-145); UREA NITROGEN, BLOOD 12 mg/dL (7-18)
[2019-12-10 14:14] LABS: ALANINE AMINOTRANSFERASE 42 U/L (12-78); ALBUMIN 4.2 g/dL (3.4-5.0); ALKALINE PHOSPHATASE 51 U/L (46-116); ASPARTATE AMINOTRANSFERASE 63 U/L (15-37); BILIRUBIN,TOTAL 2.5 mg/dL (0.1-1.0); TOTAL PROTEIN, SERUM 8.2 g/dL (6.4-8.2)
[2019-12-10] MEDS ORDERED: IBUPROFEN 600 MG TABLET PO ONE (17:15)
[2019-12-10] MEDS ORDERED: OLANZapine 5 MG TABLET PO ONE (18:45)
[2019-12-10] MEDS ORDERED: LORazepam 2 MG TABLET PO ONE (18:45)
[2019-12-10] MEDS ORDERED: OLANZapine 5 MG RAPDIS TABLET PO PRN (19:30)
[2019-12-10] MEDS ORDERED: ZOLPIDEM TARTRATE 10 MG TABLET PO PRN (19:30)
[2019-12-10 20:26] LABS: AMPHET/METH SCREEN,URINE POSITIVE (NEGATIVE); BARBITURATE SCREEN, URINE NEGATIVE (NEGATIVE); BENZODIAZEPINES SCREEN,URINE NEGATIVE (NEGATIVE); CANNABINOID SCREEN,URINE POSITIVE (NEGATIVE); COCAINE SCREEN,URINE NEGATIVE (NEGATIVE); METHADONE SCREEN, URINE NEGATIVE (NEGATIVE); OPIATE SCREEN,URINE POSITIVE (NEGATIVE)
[2019-12-10 20:31] LABS: PHENCYCLIDINE SCREEN,URINE NEGATIVE (NEGATIVE)
[2019-12-11] MEDS ORDERED: PNEUMOCOCCAL VACCINE POLYVALENT 0.5 ML VIAL [PPSV23] IM ONE (04:45)
[2019-12-11 08:41] LABS: CHOL/HDL RATIO 2.9 (4.2-7.3)
[2019-12-11 10:30] VITALS: BP 104/60
[2019-12-11 15:42] VITALS: BP 104/57
[2019-12-11 16:00] VITALS: BP 120/71
[2019-12-11 17:50] VITALS: BP 120/71
[2019-12-11] MEDS: OLANZapine 5 MG TABLET PO SCH (20:18)
[2019-12-11 21:00] VITALS: BP 120/80
[2019-12-12 01:38] VITALS: BP 111/60
[2019-12-12] MEDS: OLANZapine 5 MG TABLET PO SCH ×2 (08:40→20:35)
[2019-12-12] MEDS: NALTREXONE HCL 50 MG TABLET PO SCH (08:40)
[2019-12-12 09:25] VITALS: BP 113/63
[2019-12-12 12:52] VITALS: BP 118/63
[2019-12-12 16:39] VITALS: BP 110/63
[2019-12-12] MEDS: FERROUS SULFATE 325 MG EC TABLET PO SCH (16:47)
[2019-12-13 02:31] VITALS: BP 107/68
[2019-12-13] MEDS: FERROUS SULFATE 325 MG EC TABLET PO SCH ×2 (06:56→16:56)
[2019-12-13] MEDS: OLANZapine 5 MG TABLET PO SCH ×2 (08:56→21:05)
[2019-12-13] MEDS: NALTREXONE HCL 50 MG TABLET PO SCH (09:00)
[2019-12-13 09:17] VITALS: BP 101/67
[2019-12-13 16:00] VITALS: BP 105/61
[2019-12-14 00:47] VITALS: BP 101/61
[2019-12-14] MEDS: FERROUS SULFATE 325 MG EC TABLET PO SCH ×2 (06:44→16:33)
[2019-12-14 08:34] VITALS: BP 111/60
[2019-12-14] MEDS: OLANZapine 5 MG TABLET PO SCH ×2 (08:44→19:54)
[2019-12-14] MEDS: NALTREXONE HCL 50 MG TABLET PO SCH (08:44)
[2019-12-14 16:17] VITALS: BP 104/60
[2019-12-15 06:18] VITALS: BP 107/62
[2019-12-15] MEDS: FERROUS SULFATE 325 MG EC TABLET PO SCH ×2 (06:38→16:40)
[2019-12-15 08:11] VITALS: BP 109/60
[2019-12-15] MEDS: OLANZapine 5 MG TABLET PO SCH ×2 (08:16→20:27)
[2019-12-15] MEDS: NALTREXONE HCL 50 MG TABLET PO SCH (08:16)
[2019-12-15 16:11] VITALS: BP 125/71
[2019-12-15] MEDS: LORazepam 2 MG TABLET PO PRN (16:40)
[2019-12-16 05:56] VITALS: BP 120/68
[2019-12-16] MEDS: FERROUS SULFATE 325 MG EC TABLET PO SCH ×2 (06:49→16:55)
[2019-12-16 08:49] VITALS: BP 122/60
[2019-12-16] MEDS: NALTREXONE HCL 50 MG TABLET PO SCH (08:51)
[2019-12-16] MEDS: OLANZapine 5 MG TABLET PO SCH ×2 (08:51→20:32)
[2019-12-16 16:33] VITALS: BP 100/60
[2019-12-16] MEDS: LORazepam 2 MG TABLET PO PRN ×2 (17:12→23:45)
[2019-12-17 02:53] VITALS: BP 131/76
[2019-12-17] MEDS: FERROUS SULFATE 325 MG EC TABLET PO SCH ×2 (06:49→16:09)
[2019-12-17] MEDS: NALTREXONE HCL 50 MG TABLET PO SCH (08:42)
[2019-12-17] MEDS: OLANZapine 5 MG TABLET PO SCH (08:42)
[2019-12-17 16:09] VITALS: BP 116/66
[2019-12-17] MEDS ORDERED: OLAN5TAB2 PO ×2 (17:28→17:29)
[2019-12-17] MEDS ORDERED: NALT50TA6 PO (17:30)
== END 2019-12-17 17:40 | disposition home or self-care (01) | DRG 750 ==
LOC: EMS 13:12 → B2S 20:30
PROVIDERS: ADMIT Psychiatry & Neurology Child & Adolescent Psychiatry; ATTEND Psychiatry & Neurology Child & Adolescent Psychiatry
DX: F20.9 Schizophrenia, unspecified (principal); Z20.828 Contact with and (suspected) exposure to other viral communicable diseases; E78.5 Hyperlipidemia, unspecified; F10.10 Alcohol abuse, uncomplicated; F43.10 Post-traumatic stress disorder, unspecified; F31.9 Bipolar disorder, unspecified; J45.909 Unspecified asthma, uncomplicated; R45.851 Suicidal ideations; F17.210 Nicotine dependence, cigarettes, uncomplicated; Z79.899 Other long term (current) drug therapy
CPT/HCPCS: 87426; G0480

== ENCOUNTER 2019-12-21 12:47 | Emergency (ER) | payer MEDICAID ==
[~2019-12-21] VITALS: Ht 172.7 cm; Wt 74.5 kg
[~2019-12-21 12:47] MED LIST changes: -NALT50TA PO; +NALT50TA6 PO; +OLAN5TAB2 PO; -PALI117D IM; -PALI156D IM
[2019-12-21 13:37] LABS: BASOPHILS % (AUTO) 1.1 % (0.0-2.0); EOSINOPHILS % (AUTO) 0.8 % (1.0-6.0); HEMATOCRIT 35.1 % (41-53); LYMPHOCYTES # (AUTO) 1.6 K/uL (1.0-4.8); LYMPHOCYTES % (AUTO) 24.6 % (22.0-44.0); MEAN CORPUSCULAR HEMOGLOBIN 31.9 pg (26.0-34.0); MEAN CORPUSCULAR HGB CONC 34.2 G/dL (31.0-37.0); MEAN CORPUSCULAR VOLUME 93 fL (80-100); MONOCYTES # (AUTO) 0.7 K/uL (0.1-1.0); MONOCYTES % (AUTO) 10.5 % (2.0-9.0); NEUTROPHILS # (AUTO) 4.2 K/uL (1.8-7.7); PLATELET COUNT (AUTO) 250 K/uL (150-450); RED BLOOD CELL COUNT(AUTO) 3.77 MIL/uL (4.50-5.90); RED CELL DISTRIBUTION WIDTH 13.1 % (11.5-14.5)
[2019-12-21] MEDS ORDERED: OLANZapine 5 MG TABLET PO ONE (13:45)
[2019-12-21 13:48] LABS: ANION GAP 7 mmol/L (8-16); CALCIUM, TOTAL 8.9 mg/dL (8.8-10.5); CARBON DIOXIDE 25 mmol/L (22-29); CHLORIDE 104 mmol/L (98-107); CREATININE 1.22 mg/dL (0.60-1.30); GLOMERULAR FILTR. RATE CALC > 60 mL/min (>60); GLUCOSE,RANDOM 104 mg/dL (70-110); POTASSIUM 3.8 mmol/L (3.5-5.1); SODIUM SERUM 136 mmol/L (136-145); UREA NITROGEN, BLOOD 14 mg/dL (7-18)
[2019-12-21 13:53] LABS: ALANINE AMINOTRANSFERASE 34 U/L (12-78); ALBUMIN 4.3 g/dL (3.4-5.0); ALKALINE PHOSPHATASE 52 U/L (46-116); ASPARTATE AMINOTRANSFERASE 26 U/L (15-37); BILIRUBIN,TOTAL 1.3 mg/dL (0.1-1.0); TOTAL PROTEIN, SERUM 7.8 g/dL (6.4-8.2)
[2019-12-21] MEDS ORDERED: LORazepam 1 MG TABLET PO ONE (14:15)
[2019-12-21 15:35] LABS: AMPHET/METH SCREEN,URINE POSITIVE (NEGATIVE); BARBITURATE SCREEN, URINE NEGATIVE (NEGATIVE); BENZODIAZEPINES SCREEN,URINE NEGATIVE (NEGATIVE); CANNABINOID SCREEN,URINE POSITIVE (NEGATIVE); COCAINE SCREEN,URINE NEGATIVE (NEGATIVE); METHADONE SCREEN, URINE NEGATIVE (NEGATIVE); OPIATE SCREEN,URINE NEGATIVE (NEGATIVE)
[2019-12-21 15:39] LABS: PHENCYCLIDINE SCREEN,URINE NEGATIVE (NEGATIVE)
[2019-12-21 16:45] LABS: COVID AG,FIA SOURCE NASOPHARYNGEAL
[2019-12-21 18:35] VITALS: BP 141/82
== END 2019-12-21 18:58 | disposition home or self-care (01) ==
LOC: EMS 12:51
DX: F20.9 Schizophrenia, unspecified (principal); F41.9 Anxiety disorder, unspecified; J45.909 Unspecified asthma, uncomplicated; F31.9 Bipolar disorder, unspecified; F12.90 Cannabis use, unspecified, uncomplicated; F19.90 Other psychoactive substance use, unspecified, uncomplicated; Z20.828 Contact with and (suspected) exposure to other viral communicable diseases; Z88.8 Allergy status to other drugs, medicaments and biological substances
CPT/HCPCS: 36415; 80053; 80307; 85025; 87426; 99284; G0480

== ENCOUNTER 2020-01-11 09:46 | Day surgery (SDC) | payer MEDICAID ==
[~2020-01-11] VITALS: Ht 172.7 cm; Wt 73.6 kg
[~2020-01-11 09:46] MED LIST changes: -NALT50TA6 PO
[2020-01-11] MEDS ORDERED: SODIUM CHLORIDE 0.9% 1,000 ML ONE (10:30)
[2020-01-11 10:44] LABS: COVID AG,FIA SOURCE NASOPHARYNGEAL
[2020-01-11] MEDS ORDERED: SODIUM CHLORIDE 0.9% 1,000 ML IV ONE (11:00)
== END 2020-01-11 14:20 | disposition home or self-care (01) ==
LOC: SURGERY 09:46
PROVIDERS: ATTEND Internal Medicine Gastroenterology
DX: K63.5 Polyp of colon (principal); J45.909 Unspecified asthma, uncomplicated; Z20.828 Contact with and (suspected) exposure to other viral communicable diseases; Z80.0 Family history of malignant neoplasm of digestive organs; Z98.890 Other specified postprocedural states; Z87.891 Personal history of nicotine dependence; Z79.899 Other long term (current) drug therapy
CPT/HCPCS: 45385; 87426; C1769; C9803; J7030; 88305

== ENCOUNTER 2020-03-19 18:12 | Emergency (ER) | payer MEDICAID ==
[~2020-03-19] VITALS: Ht 172.7 cm; Wt 77.3 kg
[2020-03-19 18:34] VITALS: BP 176/124
[2020-03-19] MEDS ORDERED: OLANZapine 5 MG RAPDIS TABLET PO ONE ×2 (18:45→19:15)
[2020-03-19] MEDS ORDERED: LORazepam 2 MG TABLET PO ONE ×2 (18:45→19:15)
== END 2020-03-19 20:01 | disposition home or self-care (01) ==
LOC: EMS 18:12
DX: F20.0 Paranoid schizophrenia (principal); F15.10 Other stimulant abuse, uncomplicated; F41.9 Anxiety disorder, unspecified; J45.909 Unspecified asthma, uncomplicated; F31.9 Bipolar disorder, unspecified; F12.90 Cannabis use, unspecified, uncomplicated; Z88.8 Allergy status to other drugs, medicaments and biological substances

== ENCOUNTER 2020-03-25 22:30 | Emergency (ER) | payer MEDICAID ==
[~2020-03-25] VITALS: Ht 180.3 cm; Wt 68.2 kg
[2020-03-25 22:46] VITALS: BP 106/80
[2020-03-25] MEDS ORDERED: LORazepam 2 MG TABLET PO ONE (23:30)
[2020-03-25 23:33] LABS: BASOPHILS % (AUTO) 0.5 % (0.0-2.0); EOSINOPHILS % (AUTO) 1.1 % (1.0-6.0); HEMATOCRIT 38.9 % (41-53); HEMOGLOBIN 13.3 g/dL (13.5-17.5); LYMPHOCYTES # (AUTO) 0.9 K/uL (1.0-4.8); LYMPHOCYTES % (AUTO) 18.5 % (22.0-44.0); MEAN CORPUSCULAR HEMOGLOBIN 31.4 pg (26.0-34.0); MEAN CORPUSCULAR HGB CONC 34.1 G/dL (31.0-37.0); MEAN CORPUSCULAR VOLUME 92 fL (80-100); MONOCYTES # (AUTO) 0.6 K/uL (0.1-1.0); MONOCYTES % (AUTO) 11.7 % (2.0-9.0); NEUTROPHILS # (AUTO) 3.4 K/uL (1.8-7.7); NEUTROPHILS % (AUTO) 68.2 % (40.0-70.0); PLATELET COUNT (AUTO) 307 K/uL (150-450); RED BLOOD CELL COUNT(AUTO) 4.22 MIL/uL (4.50-5.90); RED CELL DISTRIBUTION WIDTH 12.5 % (11.5-14.5)
[2020-03-25 23:45] LABS: ANION GAP 6 mmol/L (8-16); CARBON DIOXIDE 27 mmol/L (22-29); CHLORIDE 101 mmol/L (98-107); CREATININE 1.74 mg/dL (0.60-1.30); GLOMERULAR FILTR. RATE CALC 53 mL/min (>60); GLUCOSE,RANDOM 115 mg/dL (70-110); POTASSIUM 3.5 mmol/L (3.5-5.1); SODIUM SERUM 134 mmol/L (136-145); UREA NITROGEN, BLOOD 10 mg/dL (7-18)
[2020-03-25 23:51] LABS: ALANINE AMINOTRANSFERASE 34 U/L (12-78); ALBUMIN 3.8 g/dL (3.4-5.0); ALKALINE PHOSPHATASE 52 U/L (46-116); ASPARTATE AMINOTRANSFERASE 21 U/L (15-37); BILIRUBIN,TOTAL 1.1 mg/dL (0.1-1.0); TOTAL PROTEIN, SERUM 7.7 g/dL (6.4-8.2)
[2020-03-26 00:38] LABS: AMPHET/METH SCREEN,URINE POSITIVE (NEGATIVE); BARBITURATE SCREEN, URINE NEGATIVE (NEGATIVE); BENZODIAZEPINES SCREEN,URINE NEGATIVE (NEGATIVE); CANNABINOID SCREEN,URINE NEGATIVE (NEGATIVE); COCAINE SCREEN,URINE NEGATIVE (NEGATIVE); METHADONE SCREEN, URINE NEGATIVE (NEGATIVE); OPIATE SCREEN,URINE NEGATIVE (NEGATIVE)
[2020-03-26 00:40] LABS: PHENCYCLIDINE SCREEN,URINE NEGATIVE (NEGATIVE)
[2020-03-26] MEDS ORDERED: OLANZapine 5 MG RAPDIS TABLET PO ONE (01:15)
== END 2020-03-26 02:30 | disposition home or self-care (01) ==
LOC: EMS 22:30
DX: F20.0 Paranoid schizophrenia (principal); F15.90 Other stimulant use, unspecified, uncomplicated
CPT/HCPCS: 36415; 80053; 80307; 82550; 85025; 99284; G0480